=== PATIENT | female | born 1975 | race Caucasian/White ===

== ENCOUNTER 2018-06-10 18:58 | Inpatient (IN) | payer SELFPAY ==
[~2018-06-10] VITALS: Ht 180.3 cm; Wt 70.0 kg
[2018-06-10 19:23] LABS: BASOPHILS % (AUTO) 0.2 % (0-1); EOSINOPHILS # (AUTO) 0.3 X10'3 (0-0.9); EOSINOPHILS % (AUTO) 1.8 % (0-6); HEMATOCRIT 43.8 % (35.0-45.0); HEMOGLOBIN 14.7 g/dl (12.0-16.0); LYMPHOCYTES # (AUTO) 1.7 X10'3 (1.1-4.8); LYMPHOCYTES % (AUTO) 11.5 % (21-51); MEAN CORPUSCULAR HEMOGLOBIN 30.8 PG (27.0-31.0); MEAN CORPUSCULAR HGB CONC 33.6 % (33.0-36.5); MEAN CORPUSCULAR VOLUME 91.8 FL (78-98); MEAN PLATELET VOLUME 8.5 FL (7.4-10.4); MONOCYTES # (AUTO) 0.7 X10'3 (0-0.9); MONOCYTES % (AUTO) 4.8 % (2-12); NEUTROPHILS % (AUTO) 81.7 % (42-75); PLATELET COUNT 240 X10'3 (140-440); RED BLOOD COUNT 4.77 X10'6 (4.20-5.60); RED CELL DISTRIBUTION WIDTH 13.2 % (11.5-14.5); WHITE BLOOD COUNT 14.7 X10'3 (4.5-11.0)
[2018-06-10 19:36] LABS: PARTIAL THROMBOPLASTIN TIME 23 SECONDS (22-32); PROTHROMBIN TIME 10.4 SECONDS (9.0-12.0)
[2018-06-10 19:41] LABS: URINE AMPHETAMINE SCREEN NEGATIVE (Neg); URINE BARBITUATE SCREEN NEGATIVE (Neg); URINE BENZODIAZEPINES SCREEN NEGATIVE (Neg); URINE CANNABINOID SCREEN NEGATIVE (Neg); URINE COCAINE SCREEN NEGATIVE (Neg); URINE METHADONE SCREEN NEGATIVE (Neg); URINE OPIATE SCREEN NEGATIVE (Neg); URINE PHENCYCLIDINE SCREEN NEGATIVE (Neg)
[2018-06-10 19:43] LABS: ALANINE AMINOTRANSFERASE 42 U/L (12-78); ALBUMIN 3.8 G/DL (3.4-5.0); ALKALINE PHOSPHATASE 87 IU/L (46-116); ANION GAP 13 (8-16); ASPARTATE AMINO TRANSFERASE 25 U/L (10-37); BILIRUBIN,TOTAL 0.5 MG/DL (0.1-1.0); BLOOD UREA NITROGEN 9 MG/DL (7-18); BUN/CREATININE RATIO 8.8 (6.6-38.0); CALCIUM 8.1 MG/DL (8.5-10.1); CHLORIDE 102 MMOL/L (99-107); CREATININE 1.02 MG/DL (0.40-0.90); GLUCOSE 183 MG/DL (70-104); POTASSIUM 3.4 MMOL/L (3.5-5.1); SODIUM 138 MMOL/L (135-145); TOTAL CARBON DIOXIDE 22.8 MMOL/L (24-32); TOTAL PROTEIN 7.8 G/DL (6.4-8.2); eGFR 59 ML/MIN
[2018-06-10 19:46] LABS: ABG BASE EXCESS -3.2 mmol/L (-2.0-3.0); ABG HCO3 22.5 mmol/L (22.0-26.0); ABG OXYGEN SATURATION 96.2 % (95-98); ABG PCO2 (T) 42.1 mmHg (32.0-45.0); ABG PH (T) 7.344 (7.350-7.450); ABG PO2 (T) 85.2 mmHg (83-108); FMetHb 0.2 % (0.3-1.12); MINUTE VOLUME 8 L/min; PATIENT TEMPERATURE 36.7; PEEP 8 cm H2O; RESPIRATORY RATE 16 b/min; RESPIRATORY RATE (OBSERVED) 16 b/min; TIDAL VOLUME 450 mL; TOTAL HEMOGLOBIN 14.7 G/dl (12.0-16.0)
[2018-06-10 19:47] LABS: ETHANOL < 0.010 GM/DL (0.0-0.010); MAGNESIUM 1.6 MG/DL (1.5-2.4)
[2018-06-10] MEDS ORDERED: iohexol 350MG/ML 100ml bottle IV ONE (20:02)
[2018-06-10] MEDS ORDERED: temazepam 15mg capsule PO PRN (21:00)
[2018-06-10] MEDS ORDERED: mag hydrox/Alum hydrox/simeth 30ml oral suspension PO PRN (23:15)
[2018-06-10] MEDS ORDERED: diphenhydrAMINE 50 mg/ml inj IV PRN (23:15)
[2018-06-10] MEDS ORDERED: metoclopramide 5 mg/ml inj IV PRN (23:15)
[2018-06-10] MEDS ORDERED: diphenhydrAMINE 25mg capsule PO PRN (23:15)
[2018-06-10] MEDS ORDERED: bisacodyl 10mg suppository rectal RC PRN (23:15)
[2018-06-10] MEDS ORDERED: normal saline 1000ml 1,000 ML IV SCH (23:15)
[2018-06-10] MEDS ORDERED: ondansetron/PF 4mg/2ml inj IV PRN (23:15)
[2018-06-10] MEDS ORDERED: magnesium hydroxide 30ml (MOM) UD suspension PO PRN (23:15)
[2018-06-10] MEDS ORDERED: acetaminophen 325mg tablet PO PRN ×2 (23:15)
[2018-06-10] MEDS ORDERED: acetaminophen 650mg rectal suppository RC PRN (23:15)
[2018-06-10] MEDS ORDERED: potassium Cl 20 mEq SR tablet PO PRN (23:20)
[2018-06-10 23:49] LABS: CLARITY,URINE CLEAR (Clear); COLOR,URINE STRAW (Yellow); GLUCOSE, URINE NEGATIVE (Neg); KETONES,URINE NEGATIVE (Neg); LEUKOCYTE ESTERASE ,URINE NEGATIVE (Neg); NITRITES, URINE NEGATIVE (Neg); OCCULT BLOOD,URINE TRACE-LYSED (Neg); PH,URINE 6.5 (4.8-8.0); PROTEIN,URINE NEGATIVE (Neg); UROBILINOGEN,URINE 0.2 E.U/dL (0.2-1.0)
[2018-06-10 23:49] LABS: HEMOGLOBIN A1C 5.5 % (4.5-6.2)
[2018-06-10 23:50] LABS: UA COLLECTION TYPE STRAIGHT CATH
[2018-06-10 23:59] LABS: BACTERIA,URINE FEW /HPF (Neg); RBC,URINE 0-2 /HPF (0-2); SQUAMOUS EPITHELIAL CELL,UR NONE SEEN /LPF (FEW); WBC,URINE NONE SEEN /HPF (0-4)
[2018-06-11 00:09] LABS: PHOSPHORUS 4.2 MG/DL (2.3-4.5)
[2018-06-11] MEDS: magnesium oxide 400mg tablet PO SCH ×3 (00:28→17:07)
[2018-06-11 00:30] VITALS: BP 94/51
[2018-06-11] MEDS: atorvastatin 20mg tablet PO SCH ×2 (00:30→08:38)
[2018-06-11 07:00] VITALS: BP 87/33
[2018-06-11 07:18] LABS: BASOPHILS % (AUTO) 0.3 % (0-1); EOSINOPHILS # (AUTO) 0.3 X10'3 (0-0.9); EOSINOPHILS % (AUTO) 3.4 % (0-6); HEMATOCRIT 32.8 % (35.0-45.0); HEMOGLOBIN 11.6 g/dl (12.0-16.0); LYMPHOCYTES # (AUTO) 1.7 X10'3 (1.1-4.8); LYMPHOCYTES % (AUTO) 17.7 % (21-51); MEAN CORPUSCULAR HEMOGLOBIN 32.6 PG (27.0-31.0); MEAN CORPUSCULAR HGB CONC 35.5 % (33.0-36.5); MEAN CORPUSCULAR VOLUME 91.9 FL (78-98); MEAN PLATELET VOLUME 8.8 FL (7.4-10.4); MONOCYTES # (AUTO) 0.7 X10'3 (0-0.9); NEUTROPHILS # (AUTO) 7.1 X10'3 (1.8-7.7); NEUTROPHILS % (AUTO) 71.6 % (42-75); PLATELET COUNT 173 X10'3 (140-440); RED BLOOD COUNT 3.57 X10'6 (4.20-5.60); RED CELL DISTRIBUTION WIDTH 12.4 % (11.5-14.5); WHITE BLOOD COUNT 9.8 X10'3 (4.5-11.0)
[2018-06-11 07:35] LABS: ALANINE AMINOTRANSFERASE 29 U/L (12-78); ALBUMIN 2.9 G/DL (3.4-5.0); ALBUMIN/GLOBULIN RATIO 0.9 (1.1-1.5); ALKALINE PHOSPHATASE 67 IU/L (46-116); ANION GAP 10 (8-16); ASPARTATE AMINO TRANSFERASE 16 U/L (10-37); BILIRUBIN,TOTAL 0.4 MG/DL (0.1-1.0); BLOOD UREA NITROGEN 9 MG/DL (7-18); BUN/CREATININE RATIO 9.6 (6.6-38.0); CALCIUM 7.8 MG/DL (8.5-10.1); CHLORIDE 105 MMOL/L (99-107); CREATININE 0.94 MG/DL (0.40-0.90); GLUCOSE 98 MG/DL (70-104); SODIUM 138 MMOL/L (135-145); TOTAL CARBON DIOXIDE 23.5 MMOL/L (24-32); eGFR 65 ML/MIN
[2018-06-11 07:38] LABS: CHOL/HDL RATIO 3.3 (0.00-4.99); CHOLESTEROL 105 MG/DL (0-200); HDL CHOLESTEROL 32 MG/DL (35-60); LDL CHOLESTEROL 62 MG/DL (50-100); TRIGLYCERIDES 70 MG/DL (20-135)
[2018-06-11] MEDS ORDERED: aspirin 81mg tab.chew PO SCH (08:30)
[2018-06-11] MEDS ORDERED: TRAZ-219 PO (08:36)
[2018-06-11] MEDS ORDERED: CETI-102 PO (08:36)
[2018-06-11] MEDS ORDERED: ATOR40TA PO (08:36)
[2018-06-11] MEDS ORDERED: CLON-528 PO ×2 (08:36)
[2018-06-11] MEDS ORDERED: METO-467 PO (08:36)
[2018-06-11] MEDS ORDERED: PANT20TA3 PO (08:36)
[2018-06-11] MEDS ORDERED: ASPI-611 PO (08:36)
[2018-06-11] MEDS ORDERED: DESV100T4 PO (08:36)
[2018-06-11] MEDS: docusate sod 100mg capsule PO SCH ×2 (08:37→09:09)
[2018-06-11] MEDS: pantoprazole 40mg Tablet.DR PO SCH (08:37)
[2018-06-11] MEDS: heparin, porcine 5000 units/ml vial SQ SCH ×2 (08:38→22:05)
[2018-06-11] MEDS: potassium Cl 20 mEq SR tablet PO PRN ×4 (08:38→22:02)
[2018-06-11 10:45] VITALS: BP 114/61
[2018-06-11] MEDS ORDERED: cetirizine 10mg tablet PO SCH (11:25)
[2018-06-11] MEDS ORDERED: clonazePAM 0.5mg tablet PO SCH ×2 (11:45→21:00)
[2018-06-11 11:46] VITALS: BP 94/46
[2018-06-11] MEDS: cetirizine 10mg tablet PO SCH (12:08)
[2018-06-11] MEDS: clonazePAM 0.5mg tablet PO SCH (12:08)
[2018-06-11] MEDS ORDERED: ibuprofen tablet 400 MG TABLET PO PRN (16:45)
[2018-06-11] MEDS ORDERED: hydrOXYzine 25 MG tablet PO PRN (18:15)
[2018-06-11 20:00] VITALS: BP 91/61
[2018-06-11] MEDS ORDERED: venlafaxine 25mg tablet PO SCH (20:00)
[2018-06-11] MEDS ORDERED: traZODone 50mg tablet PO SCH (21:00)
[2018-06-12 05:32] LABS: BASOPHILS % (AUTO) 0.6 % (0-1); EOSINOPHILS # (AUTO) 0.4 X10'3 (0-0.9); EOSINOPHILS % (AUTO) 6.6 % (0-6); HEMOGLOBIN 11.7 g/dl (12.0-16.0); LYMPHOCYTES # (AUTO) 2.1 X10'3 (1.1-4.8); LYMPHOCYTES % (AUTO) 37.2 % (21-51); MEAN CORPUSCULAR HEMOGLOBIN 31.7 PG (27.0-31.0); MEAN CORPUSCULAR HGB CONC 34.3 % (33.0-36.5); MEAN CORPUSCULAR VOLUME 92.3 FL (78-98); MEAN PLATELET VOLUME 9.2 FL (7.4-10.4); MONOCYTES # (AUTO) 0.5 X10'3 (0-0.9); MONOCYTES % (AUTO) 8.6 % (2-12); NEUTROPHILS # (AUTO) 2.7 X10'3 (1.8-7.7); PLATELET COUNT 190 X10'3 (140-440); RED BLOOD COUNT 3.68 X10'6 (4.20-5.60); RED CELL DISTRIBUTION WIDTH 13.1 % (11.5-14.5); WHITE BLOOD COUNT 5.8 X10'3 (4.5-11.0)
[2018-06-12 05:52] LABS: ALANINE AMINOTRANSFERASE 24 U/L (12-78); ALBUMIN 2.7 G/DL (3.4-5.0); ALBUMIN/GLOBULIN RATIO 0.8 (1.1-1.5); ALKALINE PHOSPHATASE 67 IU/L (46-116); ANION GAP 8 (8-16); ASPARTATE AMINO TRANSFERASE 14 U/L (10-37); BILIRUBIN,TOTAL 0.2 MG/DL (0.1-1.0); BLOOD UREA NITROGEN 16 MG/DL (7-18); BUN/CREATININE RATIO 18.6 (6.6-38.0); CHLORIDE 109 MMOL/L (99-107); CREATININE 0.86 MG/DL (0.40-0.90); GLUCOSE 120 MG/DL (70-104); POTASSIUM 4.3 MMOL/L (3.5-5.1); SODIUM 140 MMOL/L (135-145); TOTAL CARBON DIOXIDE 23.2 MMOL/L (24-32); TOTAL PROTEIN 5.9 G/DL (6.4-8.2); eGFR 72 ML/MIN
[2018-06-12 07:21] VITALS: BP 110/97
[2018-06-12] MEDS ORDERED: DESVENLAFAXINE 100 MG PO SCH (08:00)
[2018-06-12] MEDS ORDERED: atorvastatin 20mg tablet PO SCH (08:00)
[2018-06-12] MEDS: docusate sod 100mg capsule PO SCH (08:00)
[2018-06-12] MEDS ORDERED: aspirin 81mg tablet.DR PO SCH (08:00)
[2018-06-12] MEDS ORDERED: non-formulary drug (Pantoprazole Sodium (Protonix) 1 TAB) PO SCH (08:00)
[2018-06-12] MEDS ORDERED: metoprolol tartrate 25mg tablet PO SCH (08:00)
[2018-06-12] MEDS: pantoprazole 40mg Tablet.DR PO SCH (09:04)
[2018-06-12] MEDS: cetirizine 10mg tablet PO SCH (09:04)
[2018-06-12] MEDS: magnesium oxide 400mg tablet PO SCH ×3 (09:04→16:00)
[2018-06-12] MEDS: clonazePAM 0.5mg tablet PO SCH (09:05)
[2018-06-12] MEDS: heparin, porcine 5000 units/ml vial SQ SCH (09:05)
[2018-06-12] MEDS ORDERED: nitroGLYCERIN 0.4mg SUBLingual tab SL PRN (09:40)
[2018-06-12] MEDS ORDERED: CAFFEINE CITRATE 60 MG/3 ML injection vial IV PRN (09:40)
[2018-06-12] MEDS ORDERED: metoprolol tartrate 1mg/ml inj IV PRN (09:40)
[2018-06-12] MEDS ORDERED: regadenoson 0.4mg/5ml syringe IV PRN (09:40)
[2018-06-12] MEDS ORDERED: ipratropium/albuterol 3ml nebule NEB PRN (09:55)
[2018-06-12 11:30] VITALS: BP 98/54
[2018-06-12] MEDS ORDERED: DOXY-200 PO (13:51)
[2018-06-12] MEDS ORDERED: BUDE0.5A11 NEB (13:51)
[2018-06-12] MEDS ORDERED: FLUT1AER4 INH (14:41)
== END 2018-06-12 16:18 | disposition home or self-care (01) | DRG 208 ==
LOC: ER 18:59 → ED HOLD 23:15 → SUR 3N 23:55
PROVIDERS: ADMIT Family Medicine; ATTEND Family Medicine
PROC: 5A1935Z Respiratory Ventilation, Less than 24 Consecutive Hours (ICD-10-PCS; principal; 2018-06-10)
PROC: 0BH17EZ Insertion of Endotracheal Airway into Trachea, Via Natural or Artificial Opening (ICD-10-PCS; 2018-06-10)
PROC: B32T1ZZ Computerized Tomography (CT Scan) of Left Pulmonary Artery using Low Osmolar Contrast (ICD-10-PCS; 2018-06-10)
PROC: B3201ZZ Computerized Tomography (CT Scan) of Thoracic Aorta using Low Osmolar Contrast (ICD-10-PCS; 2018-06-10)
PROC: B32S1ZZ Computerized Tomography (CT Scan) of Right Pulmonary Artery using Low Osmolar Contrast (ICD-10-PCS; 2018-06-10)
DX: J96.01 Acute respiratory failure with hypoxia (principal); J18.9 Pneumonia, unspecified organism; I50.23 Acute on chronic systolic (congestive) heart failure; I46.9 Cardiac arrest, cause unspecified; J81.1 Chronic pulmonary edema; E86.1 Hypovolemia; E87.6 Hypokalemia; F17.200 Nicotine dependence, unspecified, uncomplicated; F31.9 Bipolar disorder, unspecified; F41.9 Anxiety disorder, unspecified; I25.10 Atherosclerotic heart disease of native coronary artery without angina pectoris; I25.2 Old myocardial infarction; Z88.5 Allergy status to narcotic agent; Z71.6 Tobacco abuse counseling
CPT/HCPCS: 36415; 36600; 70450; 71045; 71046; 71275; 80053; 80061; 80305; 80320; 81001; 82140; 82803; 83036; 83735; 83880; 84100; 84443; 84484; 85018; 85025; 85610; 85730; 87070; 93005; 93306; 94002; 94640; 94667; 94760; 99285; A6213; J1644; J7030; L0172; Q9967

== ENCOUNTER 2024-04-15 13:48 | Emergency (ER) | payer BC ==
[~2024-04-15] VITALS: Ht 170.2 cm; Wt 88.4 kg
[~2024-04-15 13:48] MED LIST: ASPI-611 PO; ATOR40TA PO; CETI-90 PO; CLON0.5T2 PO; DESV100T4 PO; FLUT1AER4 INH; METO-467 PO; PANT20TA18 PO; TRAZ-256 PO
[2024-04-15 14:17] LABS: BASOPHILS # (AUTO) 0.3 X10'3 (0-0.2); EOSINOPHILS # (AUTO) 0.1 X10'3 (0-0.9); EOSINOPHILS % (AUTO) 0.6 % (0-6); HEMOGLOBIN 16.3 g/dl (12.0-16.0); LYMPHOCYTES # (AUTO) 2.1 X10'3 (1.1-4.8); LYMPHOCYTES % (AUTO) 15.7 % (21-51); MEAN CORPUSCULAR HEMOGLOBIN 31.2 PG (27.0-31.0); MEAN PLATELET VOLUME 9.3 FL (7.4-10.4); MONOCYTES # (AUTO) 1.1 X10'3 (0-0.9); MONOCYTES % (AUTO) 8.1 % (2-12); NEUTROPHILS % (AUTO) 73.6 % (42-75); PLATELET COUNT 249 X10'3 (140-440); RED BLOOD COUNT 5.22 X10'6 (4.20-5.60); RED CELL DISTRIBUTION WIDTH 13.6 % (11.5-14.5); WHITE BLOOD COUNT 13.5 X10'3 (4.5-11.0)
[2024-04-15 14:35] LABS: ALBUMIN 4.1 G/DL (3.4-5.0); ANION GAP 17 (8-16); BLOOD UREA NITROGEN 15 MG/DL (7-18); BUN/CREATININE RATIO 11.5 (10.0-20.0); CALCIUM 9.7 MG/DL (8.5-10.1); CHLORIDE 103 MMOL/L (99-107); GLUCOSE 110 MG/DL (70-104); POTASSIUM 3.1 MMOL/L (3.5-5.1); PRO BRAIN NATRIURETIC PEPTIDE 218 PG/ML (0-125); SODIUM 138 MMOL/L (135-145); eCRCL 51 ML/MIN; eGFR 44 ML/MIN
[2024-04-15] MEDS: diazepam 5mg tablet PO ONE (15:36)
[2024-04-15] MEDS ORDERED: iohexol 350MG/ML 100ml bottle IV ONE (16:22)
[2024-04-15] MEDS ORDERED: ketorolac tromethamine 15mg/ml inj. IV ONE (16:25)
[2024-04-15] MEDS: ketorolac trometh. 30mg/ml inj. IV ONE (16:55)
[2024-04-15] MEDS: famotidine 20mg tablet PO ONE (19:45)
[2024-04-15] MEDS: LIDOcaine 2% Viscous 15ml cup MM ONE (19:45)
[2024-04-15] MEDS: mag hydrox/Alum hydrox/simeth 30ml oral suspension PO ONE (19:45)
[2024-04-15] MEDS: oxyCODONE/APAP 10/325mg tablet PO ONE (19:59)
[2024-04-15 21:15] VITALS: BP 136/76; PULSE 84; RESP 20; TEMP 98.6; O2SAT 99
[2024-04-15] MEDS: MIDAZolam 5mg/ml 2ml vial IV ONE (21:22)
== END 2024-04-15 21:23 | disposition home or self-care (01) ==
LOC: ER 13:49
DX: R07.9 Chest pain, unspecified (principal); I71.43 Infrarenal abdominal aortic aneurysm, without rupture; F41.9 Anxiety disorder, unspecified; M54.9 Dorsalgia, unspecified; I50.9 Heart failure, unspecified; I25.2 Old myocardial infarction; F31.9 Bipolar disorder, unspecified; Z98.890 Other specified postprocedural states; Z88.8 Allergy status to other drugs, medicaments and biological substances; Z79.82 Long term (current) use of aspirin; Z79.899 Other long term (current) drug therapy; Z79.51 Long term (current) use of inhaled steroids
CPT/HCPCS: 36415; 71045; 71275; 74174; 80048; 83880; 84484; 85025; 93005; 96374; 96375; 99285; J1885; J2250; Q9967